=== PATIENT | female | born 1990 | race Caucasian/White ===

== ENCOUNTER 2018-04-04 08:28 | Emergency (ER) | payer OTHER ==
[~2018-04-04] VITALS: Ht 170.2 cm; Wt 67.1 kg
[~2018-04-04 08:28] MED LIST: DOLOGESIC CAPSU1 CAP PO; FLEXERIL10 MG PO; NABUMETONE750 MG PO; PROTONIX40 MG PO; TRAMADOL HCL50 MG PO; TUSICOF LIQUID120 ML PO
[2018-04-04] MEDS ORDERED: PRENATA CHEWAB1 EACH PO (08:51)
== END 2018-04-04 12:06 | disposition home or self-care (01) ==
LOC: ER 08:28
DX: O98.511 Other viral diseases complicating pregnancy, first trimester (principal); J11.1 Influenza due to unidentified influenza virus with other respiratory manifestations; Z34.01 Encounter for supervision of normal first pregnancy, first trimester

== ENCOUNTER 2018-11-14 13:30 | Inpatient (IN) | payer OTHER ==
[~2018-11-14] VITALS: Ht 170.2 cm; Wt 88.5 kg
[~2018-11-14 13:30] MED LIST changes: +PRENATA CHEWAB1 EACH PO
== END 2018-12-01 12:45 | disposition home or self-care (01) | DRG 788 ==
LOC: OB/GYN 13:30 → LDR 11-28 12:21 → O/R 11-28 19:29 → OB/GYN 11-28 19:48
PROVIDERS: ADMIT Specialist
PROC: 4A0HXFZ Measurement of Products of Conception, Cardiac Rhythm, External Approach (ICD-10-PCS; 2018-11-28)
PROC: 10D00Z1 Extraction of Products of Conception, Low, Open Approach (ICD-10-PCS; principal; 2018-11-28 17:00)
DX: O36.8130 Decreased fetal movements, third trimester, not applicable or unspecified (principal); O76 Abnormality in fetal heart rate and rhythm complicating labor and delivery; Z37.0 Single live birth; Z3A.40 40 weeks gestation of pregnancy

== ENCOUNTER 2018-11-20 23:52 | Outpatient (CLI) | payer OTHER | END 2018-11-21 10:34 | disposition home or self-care (01) | LOC: OBS/DEL 23:52 | DX: O47.1 False labor at or after 37 completed weeks of gestation (principal); O23.593 Infection of other part of genital tract in pregnancy, third trimester; Z34.03 Encounter for supervision of normal first pregnancy, third trimester ==

== ENCOUNTER 2020-12-18 00:07 | Outpatient (CLI) | payer OTHER | END 2020-12-18 10:07 | disposition home or self-care (01) | LOC: OBS/DEL 00:07 | PROVIDERS: ATTEND Specialist | DX: O47.1 False labor at or after 37 completed weeks of gestation (principal); Z3A.36 36 weeks gestation of pregnancy ==

== ENCOUNTER 2021-01-03 07:15 | Inpatient (IN) | payer OTHER ==
[~2021-01-03] VITALS: Ht 170.2 cm; Wt 3.2 kg
[2021-01-03] MEDS ORDERED: PRENATAL PO (08:29)
== END 2021-01-09 11:31 | disposition home or self-care (01) | DRG 788 ==
LOC: OB/GYN 01-06 07:00 → O/R 01-06 11:30 → OB/GYN 01-06 11:30
PROVIDERS: ADMIT Specialist; ATTEND Specialist
PROC: 4A0HXFZ Measurement of Products of Conception, Cardiac Rhythm, External Approach (ICD-10-PCS; 2021-01-06)
PROC: 10D00Z1 Extraction of Products of Conception, Low, Open Approach (ICD-10-PCS; principal; 2021-01-06 07:00)
DX: O34.211 Maternal care for low transverse scar from previous cesarean delivery (principal); O99.824 Streptococcus B carrier state complicating childbirth; Z37.0 Single live birth; Z3A.39 39 weeks gestation of pregnancy

== ENCOUNTER 2024-06-01 13:46 | Emergency (ER) | payer OTHER ==
[~2024-06-01] VITALS: Ht 170.2 cm; Wt 70.8 kg
[~2024-06-01 13:46] MED LIST changes: +PRENATAL PO
[2024-06-01] MEDS ORDERED: CLONAZEPAM1 MG (14:56)
[2024-06-01] MEDS ORDERED: ZOLOFT50 MG (14:57)
[2024-06-01] MEDS ORDERED: BUDESONIDE 0.5 MG/2 ML AMPUL.NEB IH STA (15:33)
[2024-06-01] MEDS ORDERED: METHYLPREDNISOLONE SOD SUCC 40 MG VIAL IV SCH (15:34)
[2024-06-01] MEDS ORDERED: ALBUTEROL SULFATE 3 ML/2.5 MG AMPUL.NEB IH SCH (15:45)
[2024-06-01] MEDS ORDERED: BUDESONIDE 0.5 MG/2 ML AMPUL.NEB IH ONE (15:58)
[2024-06-01] MEDS ORDERED: ALBUTEROL SULFATE 3 ML/2.5 MG AMPUL.NEB IH ONE (15:59)
[2024-06-01 16:26] LABS: HEMATOCRIT 35.7 % (36.0-45.00); HEMOGLOBIN 11.9 g/dL (12.0-15.00); MEAN CELL VOLUME 80.9 fL (80.00-100.00); MEAN CORPUSCULAR HGB CONC 33.4 g/dl (32.0-36.0); PLATELET COUNT 264 K/uL (150-450); RED BLOOD COUNT 4.41 M/uL (4.00-6.00); RED CELL DISTRIBUTION WIDTH 14.2 % (11.5-14.5)
== END 2024-06-01 17:54 | disposition home or self-care (01) ==
LOC: ER 13:48 → EMR PED 14:46
DX: B34.9 Viral infection, unspecified (principal); Z20.822 Contact with and (suspected) exposure to COVID-19

== ENCOUNTER 2025-04-28 08:27 | Emergency (ER) | payer OTHER ==
[~2025-04-28] VITALS: Ht 170.2 cm; Wt 65.8 kg
[~2025-04-28 08:27] MED LIST changes: +CLONAZEPAM1 MG; +ZOLOFT50 MG
[2025-04-28] MEDS ORDERED: ORPHENADRINE CITRATE 30 MG/ML AMPUL IM STA (09:35)
[2025-04-28] MEDS ORDERED: DEXAMETHASONE SODIUM PHOSPHATE 4 MG/ML VIAL IM STA (09:35)
[2025-04-28] MEDS ORDERED: KETOROLAC TROMETHAMINE 30 MG VIAL IM ONE (09:45)
[2025-04-28] MEDS ORDERED: KETOROLAC TROMETHAMINE 30 MG VIAL ONE (09:55)
[2025-04-28] MEDS ORDERED: ORPHENADRINE CITRATE 30 MG/ML AMPUL ONE (09:55)
[2025-04-28] MEDS ORDERED: DEXAMETHASONE SODIUM PHOSPHATE 4 MG/ML VIAL ONE (09:56)
[2025-04-28] MEDS ORDERED: IBU600 MG PO (11:10)
== END 2025-04-28 11:47 | disposition home or self-care (01) ==
LOC: ER 08:27
DX: M67.911 Unspecified disorder of synovium and tendon, right shoulder (principal); M25.511 Pain in right shoulder; M19.011 Primary osteoarthritis, right shoulder; F31.81 Bipolar II disorder; F41.0 Panic disorder [episodic paroxysmal anxiety]; I95.89 Other hypotension